=== PATIENT | female | born 1960 | race Two or more races ===

== ENCOUNTER 2024-09-15 16:41 | Inpatient (IN) | payer MEDICAID, OTHER ==
[~2024-09-15] VITALS: Ht 170.2 cm; Wt 73.1 kg
--- NOTE | 2024-09-15 19:08 | ED.PDOC ---
HPI (NEURO) HPI Comments 64y F who presents to the ED for chief complaint of generalized weakness. Per son, pt has been having fever, cough, chills, and congestion for the past 2 days. Pt states she was seen at urgent care for her symptoms and states pt had syncopal episode in urgent care for approx 7-8 seconds and brought to the ED for further evaluation. Pt states she was sitting in chair when she had a sudden syncopal episode. Pt denies any associated head injury after syncopal episode. Pt now in the ED, is alert and oriented x 4 and able to answer all questions. Pt denies chest pain, shortness of breath, headache, dizziness, nausea or vomiting. Pt has no noted changes in vision or speech. Pt otherwise able to answer all questions in the ED. Pt has noted stable vitals in the ED. Pt denies any other symptoms at this time. 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 Family History Family History: Unknown Social History Smoker: Non-Smoker Alcohol: Denies ETOH Use Drugs: Denies Drug Use Lives In: Home Constitutional: reports: chills, fever, weakness; denies: diaphoresis, fatigue, malaise, sweats, others EENTM: denies: blurred vision, double vision, ear bleeding, ear discharge, ear drainage, ear pain, ear ringing, eye pain, eye redness, hearing loss, mouth pain, mouth swelling, nasal discharge, nose bleeding, nose congestion, nose pain, photophobia, tearing, throat pain, throat swelling, voice changes, others Respiratory: reports: cough; denies: hemoptysis, orthopnea, SOB at rest, shortness of breath, SOB with excertion, stridor, wheezing, others Cardiovascular: denies: chest pain, dizzy spells, diaphoresis, Dyspnea on exertion, edema, irregular heart beat, left arm pain, lightheadedness, palpitations, PND, syncope, others Gastrointestinal: denies: abdomen distended, abdominal pain, blood streaked bowels, constipated, diarrhea, dysphagia, difficulty swallowing, hematemesis, melena, nausea, poor appetite, poor fluid intake, rectal bleeding, rectal pain, vomiting, others Genitourinary: denies: abnormal vagina bleeding, burning, dyspareunia, dysuria, flank pain, frequency, hematuria, incontinence, pain, , vagina discharge, urgency, others Neurological: reports: fainting; denies: dizziness, headache, left sided numbness, left sided weakness, numbness, paresthesia, pre-existing deficit, right sided numbness, right sided weakness, seizure, speech problems, tingling, tremors, weakness, others Musculoskeletal: denies: back pain, gout, joint pain, joint swelling, muscle pain, muscle stiffness, neck pain, others Integumetry: denies: bruises, change in color, change in hair/nails, dryness, laceration, lesions, lumps, rash, wounds, others Allergic/Immunocompromised: denies: Difficulty Healing, Frequent Infections, Hives, Itching, others Hematologic/Lymphatic: denies: anemia, blood clots, easy bleeding, easy bruising, swollen glands, others Endocrine: denies: excessive hunger, excessive sweating, excessive thirst, excessive urination, flushing, intolerance to cold, intolerance to heat, unexplained weight gain, unexplained weight loss, others Psychiatric: denies: anxiety, bipolar disorder, depression, hopeless, panic disorder, schizophrenia, sleepless, suicidal, others All Other Systems: Reviewed and Negative Physical Exam General Appearance: No Apparent Distress, Normal HEENT: Normal ENT Inspection, Pharynx Normal, TMs Normal Neck: Full Range of Motion, Non-Tender, Normal, Normal Inspection Respiratory: Chest Non-Tender, Lungs Clear, No Accessory Muscle Use, No Respiratory Distress, Normal Breath Sounds Cardiovascular: No Edema, No JVD, No Murmur, No Gallop, Normal Peripheral Pulses, Regular Rate/Rhythm Breast Exam: Deferred Gastrointestinal: No Organomegaly, Non Tender, No Pulsatile Mass, Normal Bowel Sounds, Soft Genitalia: Deferred Pelvic: Deferred Rectal: Deferred Extremities: No calf tenderness, Normal capillary refill, Normal inspection, Normal range of motion, Non-tender, No pedal edema Musculoskeletal : Apperance: Normal Neurologic: Alert, paralegal internship II-XII nml as Tested, No Motor Deficits, Normal Affect, Normal Mood, No Sensory Deficits Cerebellar Function: NOT DONE Reflexes: NOT DONE Skin: Dry, Normal Color, Warm Lymphatic: No Adenopathy Was a procedure done? Was a procedure done?: No Differential Diagnosis (SZ) General Weakness: Anemia, Dehydration, Electrolyte imbalance, Encephalopathy, Hypoglycemia, Vertigo: central, Vertigo: peripheral X-Ray, Labs, Meds, VS Vital Signs Date Time Temp Pulse Resp B/P (MAP) Pulse Ox O2 Delivery O2 Flow Rate FiO2 09/15/24 16:54 82 09/15/24 16:53 98.8 77 16 123/63 (83) 96 Lab Test 09/15/24 19:57 09/15/24 18:50 Range/Units Troponin I High Sensitivity Pending < 3 L </=34 ng/L White Blood Count 6.4 4.4-10.8 10^3/uL Red Blood Count 4.76 4.0-5.20 10^6/uL Hemoglobin 12.9 12.2-16.2 g/dL Hematocrit 39.6 36.0-46.0 % Mean Corpuscular Volume 83.1 80.0-100.0 fL Mean Corpuscular Hemoglobin 27.1 L 28.0-32.0 pg Mean Corpuscular Hemoglobin Concent 32.6 32.0-36.0 g/dL Red Cell Distribution Width 15.9 H 11.8-14.3 % Platelet Count 172 140-450 10^3/uL Mean Platelet Volume 8.7 6.9-10.8 fL Neutrophils (%) (Auto) 56.2 37.0-80.0 % Lymphocytes (%) (Auto) 33.3 10.0-50.0 % Monocytes (%) (Auto) 8.5 0.0-12.0 % Eosinophils (%) (Auto) 1.4 0.0-7.0 % Basophils (%) (Auto) 0.6 0.0-2.0 % Neutrophils # (Auto) 3.6 1.6-8.6 10 ^3/uL Lymphocytes # (Auto) 2.1 0.4-5.4 10 ^3/uL Monocytes # (Auto) 0.5 0-1.3 10 ^3/uL Eosinophils # (Auto) 0.1 0-0.8 10 ^3/uL Basophils # (Auto) 0 0-0.2 10 ^3/uL Nucleated Red Blood Cells 0.1 % Sodium Level 137 136-145 mmol/L Potassium Level 4.6 3.5-5.1 mmol/L Chloride Level 107 98-107 mmol/L Carbon Dioxide Level 21 20-31 mmol/L Anion Gap 9 5-15 Blood Urea Nitrogen 13 9-23 mg/dL Creatinine 0.71 0.550-1.02 mg/dL Glomerular Filtration Rate Calc 94 >90 mL/min BUN/Creatinine Ratio 18.3 10.0-20.0 Serum Glucose 103 74-106 mg/dL Calcium Level 9.4 8.7-10.4 mg/dL [place] [address] Ph: [phone] DIAGNOSTIC IMAGING Diagnostic Imaging Report : [id number] Signed PATIENT: PEDRO AVILESCCT: [id number] UNIT: [id number] : 1960 LOC: ER ROOM / BED: / AGE / SEX: 64 / F ADM STATUS: REG ER SERVICE 36 ORDERING PHYSICIAN: JESSIKA SALAS MD PROCEDURE(s): HWOCT - HEAD WITHOUT CONTRAST REASON: syncope ORDER NUMBER(s): [id number], ACCESSION NUMBER(s): [id number] EXAM: CT HEAD WITHOUT CONTRAST INDICATION: syncope TECHNIQUE: CT of the head without intravenous contrast. Radiation Dose : 1. Head: CT Dose: CTDI volume is 53.24 mGy. Dose-length product is 853.58 mGy*cm The dose indicators for CT are the volume Computed Tomography (CT) Dose Index (CTDIvol) and the Dose Length Product (DLP), and are measured in units of mGy and mGy-cm, respectively. These indicators are not patient dose, but values generated from the CT scanner acquisition factors. The report includes radiation exposure data for exposures received during this examination. COMPARISON: None FINDINGS: There is no evidence of acute intracranial hemorrhage, extra-axial collection, mass effect, midline shift, herniation or hydrocephalus. The ventricles, sulci and cisterns are age appropriate. The goss-white differentiation is intact. Patchy periventricular and subcortical white matter hypoattenuation is nonspecific but may be related to small vessel ischemic disease. The visualized paranasal sinuses and mastoid air cells are clear. The surrounding soft tissues and osseous structures are unremarkable. IMPRESSION: 1. No acute intracranial abnormality. Radiation optimization: All CT scans at this facility use at least one of these dose optimization techniques: automated exposure control mA and/or kV adjustment per patient size (includes targeted exams where dose is matched to clinical indication) or iterative reconstruction. ATED BY: MARLENA THOMAS MD DICTATED DATE/TIME: 09/15/241915 SIGNED BY: MARLENA THOMAS MD SIGNED DATE/TIME: 09/15/241915 CC: [place] [address] Ph: [phone] DIAGNOSTIC IMAGING Diagnostic Imaging Report : [id number] Signed PATIENT: PEDRO AVILESCCT: [id number] UNIT: [id number] : 1960 LOC: ER ROOM / BED: / AGE / SEX: 64 / F ADM STATUS: REG ER SERVICE 36 ORDERING PHYSICIAN: JESSIKA SALAS MD PROCEDURE(s): CXRP - CHEST PORTABLE REASON: syncope ORDER NUMBER(s): [id number], ACCESSION NUMBER(s): [id number] CHEST RADIOGRAPH Indication: syncope Technique: Single frontal view of the chest was obtained COMPARISON: None FINDINGS: Lines and Tubes: None Lungs: Clear Pleura: No effusion. No pneumothorax. Cardiomediastinal contours: Unremarkable Bones: Unremarkable IMPRESSION: 1. No acute disease. ATED BY: MARLENA THOMAS MD DICTATED DATE/TIME: 09/15/241916 SIGNED BY: MARLENA THOMAS MD SIGNED DATE/TIME: 09/15/241916 CC: Time of 1ST Reevaluation: 19:35 Reevaluation 1ST: Improved Patient Education/Counseling: Diagnosis, Treatment Family Education/Counseling: Diagnosis, Treatment Departure 1 Departure Time of Disposition: 20:35 (Patient presented with syncope today and should be admitted. Data: 1. I ordered and reviewed the result of at least 3 labs including a CBC, BMP, and troponin. 2. I independently interpreted the following tests: EKG which shows a we will sinus and a chest x-ray which shows benign chest and a CT head which shows benign brain.Risk:This patient has a high risk of morbidity due to further diagnostic testing or treatment and may suffer from an acute cardiac, neurologic, or infectious disorder. Rationale: Patient should be admitted to the hospital for further management.) Impression: Primary Impression: Syncope and collapse Additional Impression: Generalized weakness Disposition: ADMITTED INPATIENT Admit to: Med Surg Condition: Serious Critical Care Note Critical Care Time?: No Stability Stability form required: No Heart Score Heart Score: Heart Score Response (Comments) Value History N/A 0 EKG N/A 0 Age N/A 0 Risk Factors N/A 0 Troponin N/A 0 Total 0 I personally scribed for JESSIKA SALAS MD ([email or web address]) on 09/15/24 at 19:08. Electronically submitted by Niya Sanchez ([email or web address]). I personally scribed for JESSIKA SALAS MD ([email or web address]) on 09/15/24 at 19:33. Althea ctronically submitted by Niya Sanchez (CASTRO). JESSIKA SALAS MD Sep 15, 2024 19:08
[2024-09-15 19:16] LABS: Basophils # (auto) 0 10 ^3/uL (0-0.2); Eosinophils # (auto) 0.1 10 ^3/uL (0-0.8); Hematocrit 39.6 % (36.0-46.0); Neutrophils # (auto) 3.6 10 ^3/uL (1.6-8.6); Nucleated Red Blood Cells % 0.1 %; White Blood Cell 6.4 10^3/uL (4.4-10.8)
[2024-09-15 19:17] LABS: Basophils % (auto) 0.6 % (0.0-2.0); Eosinophils % (auto) 1.4 % (0.0-7.0); Hemoglobin 12.9 g/dL (12.2-16.2); Lymphocytes # (auto) 2.1 10 ^3/uL (0.4-5.4); Lymphocytes % (auto) 33.3 % (10.0-50.0); Mean Corpuscular Hemoglobin 27.1 pg (28.0-32.0); Mean Corpuscular Hgb Conc. 32.6 g/dL (32.0-36.0); Mean Corpuscular Volume 83.1 fL (80.0-100.0); Monocytes # (auto) 0.5 10 ^3/uL (0-1.3); Monocytes % (auto) 8.5 % (0.0-12.0); Neutrophils % (auto) 56.2 % (37.0-80.0); Platelet Count (auto) 172 10^3/uL (140-450); Red Blood Cells 4.76 10^6/uL (4.0-5.20); Red Cell Distribution Width 15.9 % (11.8-14.3)
--- NOTE | 2024-09-15 19:19 | DVH ---
EXAM: CT HEAD WITHOUT CONTRAST INDICATION: syncope TECHNIQUE: CT of the head without intravenous contrast. Radiation Dose : 1. Head: CT Dose: CTDI volume is 53.24 mGy. Dose-length product is 853.58 mGy*cm The dose indicators for CT are the volume Computed Tomography (CT) Dose Index (CTDIvol) and the Dose Length Product (DLP), and are measured in units of mGy and mGy-cm, respectively. These indicators are not patient dose, but values generated from the CT scanner acquisition factors. The report includes radiation exposure data for exposures received during this examination. COMPARISON: None FINDINGS: There is no evidence of acute intracranial hemorrhage, extra-axial collection, mass effect, midline s hift, herniation or hydrocephalus. The ventricles, sulci and cisterns are age appropriate. The goss-white differentiation is intact. Patchy periventricular and subcortical white matter hypoattenuation is nonspecific but may be related to small vessel ischemic disease. The visualized paranasal sinuses and mastoid air cells are clear. The surrounding soft tissues and osseous structures are unremarkable. IMPRESSION: 1. No acute intracranial abnormality. Radiation optimization: All CT scans at this facility use at least one of these dose optimization yuly hniques: automated exposure control mA and/or kV adjustment per patient size (includes targeted exam s where dose is matched to clinical indication) or iterative reconstruction.
--- NOTE | 2024-09-15 19:19 | DVH ---
CHEST RADIOGRAPH Indication: syncope Technique: Single frontal view of the chest was obtained COMPARISON: None FINDINGS: Lines and Tubes: None Lungs: Clear Pleura: No effusion. No pneumothorax. Cardiomediastinal contours: Unremarkable Bones: Unremarkable IMPRESSION: 1. No acute disease.
[2024-09-15 19:24] LABS: Chloride 107 mmol/L (98-107); Potassium 4.6 mmol/L (3.5-5.1); Sodium 137 mmol/L (136-145)
[2024-09-15 19:25] LABS: Anion Gap 9 (5-15); Calcium 9.4 mg/dL (8.7-10.4); Carbon Dioxide 21 mmol/L (20-31)
[2024-09-15 19:30] LABS: BUN/Creatinine Ratio 18.3 (10.0-20.0); Blood Urea Nitrogen 13 mg/dL (9-23); Glucose 103 mg/dL (74-106)
[2024-09-15 21:09] VITALS: BP 140/72; PULSE 94; TEMP 99.6
[2024-09-15 21:20] VITALS: RESP 20; O2SAT 96
--- NOTE | 2024-09-16 01:24 | DVHHP2 ---
History of Present Illness Reason for Visit: Syncope and collapse History of Present Illness The patient is a 64 year old female with past medical history of hypertension and thyroid disease who presented to [facility] ED with complaint of generalized weakness. Patient reports symptoms progressively get worse with f ever, cough, chills, congestion for the past two days, sudden syncopal episode, getting worse today that prompted this visit. Patient was seen and evaluated in the ED, laboratory data shows WBC 6.4, platelets 172, sodium 137, potassium 4.6, BUN 13, creatinine 0.71, glucose 103, troponin 3. Head CT showed no acute intracranial abnormality. Please see medication orders section in the computer. On my assessment, patient denied chest pain, no headache, no dizziness, no diaphoresis, no shortness of breath, no nausea, no vomiting, no fever, no chills. Patient was admitted for further evaluation and medical management. Past Medical History HTN, Thyroid Past Surgical History Denies all surgeries Family History Reviewed, noncontributory to the management of this case. Past Social History The patient lives at home, denies smoking, alcohol or illicit drugs abuse. Review of Systems Constitutional: Yes: Fever, Chills, Weakness; No: Sweats, Malaise, Other Eyes: No: Pain, Vision change, Conjunctivae inflammation, Eyelid inflammation, Other, Redness ENT: No: Ear pain, Ear discharge, Nose pain, Nose discharge, Nose congestion, Mouth pain, Mouth swelling, Throat pain, Throat swelling, Other Respiratory: Cough; No: Dry, Shortness of breath, SOB with excertion, Wheezing, Hemoptysis, Pleuritic Pain, Sputum, Wheezing, Other Cardiovascular: No: Chest Pain, Palpitations, Orthopnea, Paroxysmal Noc. Dyspnea, Edema, Lt Headedness, Other Gastrointestinal: No: Nausea, Vomiting, Abdominal Pain, Diarrhea, Constipation, Melena, Hematochezia, Other Genitourinary: No Dysuria, No Frequency, No Incontinence, No Hematuria, No Retention, No Other Musculoskeletal: No: other, neck pain, shoulder pain, arm pain, back pain, hand pain, leg pain, foot pain Skin: No: Rash, Lesions, Jaundice, Bruising, Other Neurological: Other (Fainting); No: Weakness, Numbness, Incoordination, Change in speech, Confusion, Seizures Allergies: Coded Allergies: NO KNOWN ALLERGIES (Unverified , 09/16/24) Exam Vital Signs Vital Signs Date Time Temp Pulse Resp B/P (MAP) Pulse Ox O2 Delivery O2 Flow Rate FiO2 09/15/24 21:20 20 96 Room Air* 0 21 09/15/24 21:09 99.6 94 140/72 (94) 99.6 General Appearance: Alert, Oriented X3, Cooperative, No acute distress HEENT: Atraumatic, PERRLA, EOMI, Mucous membr. moist/pink Respiratory: Clear to auscultation, Normal air movement Cardiovascular: Regular rate, Normal S1, Normal S2, No murmurs Abdominal: Normal bowel sounds, Soft, No tenderness, No hepatospenomegaly, No masses Extremities: No clubbing, No cyanosis, No edema, Normal pulses, No tenderness/swelling Skin: No rashes, No breakdown, No significant lesion Neuro: Normal speech, Normal tone, Sensation intact, Cranial nerves 3-12 NL, Reflexes 2+, Other (Generalized weakness) Psych/Mental Status: Mental status NL, Mood NL Labs/Xrays Labs Test 09/15/24 19:57 09/15/24 18:50 Range/Units Troponin I High Sensitivity < 3 L </=34 ng/L White Blood Count 6.4 4.4-10.8 10^3/uL Red Blood Count 4.76 4.0-5.20 10^6/uL Hemoglobin 12.9 12.2-16.2 g/dL Hematocrit 39.6 36.0-46.0 % Mean Corpuscular Volume 83.1 80.0-100.0 fL Mean Corpuscular Hemoglobin 27.1 L 28.0-32.0 pg Mean Corpuscular Hemoglobin Concent 32.6 32.0-36.0 g/dL Red Cell Distribution Width 15.9 H 11.8-14.3 % Platelet Count 172 140-450 10^3/uL Mean Platelet Volume 8.7 6.9-10.8 fL Neutrophils (%) (Auto) 56.2 37.0-80.0 % Lymphocytes (%) (Auto) 33.3 10.0-50.0 % Monocytes (%) (Auto) 8.5 0.0-12.0 % Eosinophils (%) (Auto) 1.4 0.0-7.0 % Basophils (%) (Auto) 0.6 0.0-2.0 % Neutrophils # (Auto) 3.6 1.6-8.6 10 ^3/uL Lymphocytes # (Auto) 2.1 0.4-5.4 10 ^3/uL Monocytes # (Auto) 0.5 0-1.3 10 ^3/uL Eosinophils # (Auto) 0.1 0-0.8 10 ^3/uL Basophils # (Auto) 0 0-0.2 10 ^3/uL Nucleated Red Blood Cells 0.1 % Sodium Level 137 136-145 mmol/L Potassium Level 4.6 3.5-5.1 mmol/L Chloride Level 107 98-107 mmol/L Carbon Dioxide Level 21 20-31 mmol/L Anion Gap 9 5-15 Blood Urea Nitrogen 13 9-23 mg/dL Creatinine 0.71 0.550-1.02 mg/dL Glomerular Filtration Rate Calc 94 >90 mL/min BUN/Creatinine Ratio 18.3 10.0-20.0 Serum Glucose 103 74-106 mg/dL Calcium Level 9.4 8.7-10.4 mg/dL PATIENT: PEDRO AVILESCCT: [id number] UNIT: [id number] : 1960 LOC: ER ROOM / BED: / AGE / SEX: 64 / F ADM STATUS: REG ER SERVICE 36 ORDERING PHYSICIAN: JESSIKA SALAS MD PROCEDURE(s): HWOCT - HEAD WITHOUT CONTRAST REASON: syncope ORDER NUMBER(s): [id number], ACCESSION NUMBER(s): [id number] EXAM: CT HEAD WITHOUT CONTRAST INDICATION: syncope TECHNIQUE: CT of the head without intravenous contrast. Radiation Dose : 1. Head: CT Dose: CTDI volume is 53.24 mGy. Dose-length product is 853.58 mGy*cm The dose indicators for CT are the volume Computed Tomography (CT) Dose Index (CTDIvol) and the Dose Length Product (DLP), and are measured in units of mGy and mGy-cm, respectively. These indicators are not patient dose, but values generated from the CT scanner acquisition factors. The report includes radiation exposure data for exposures received during this examination. COMPARISON: None FINDINGS: There is no evidence of acute intracranial hemorrhage, extra-axial collection, mass effect, midline shift, herniation or hydrocephalus. The ventricles, sulci and cisterns are age appropriate. The goss-white differentiation is intact. Patchy periventricular and subcortical white matter hypoattenuation is nonspecific but may be related to small vessel ischemic disease. The visualized paranasal sinuses and mastoid air cells are clear. The surrounding soft tissues and osseous structures are unremarkable. IMPRESSION: 1. No acute intracranial abnormality. ORDERING PHYSICIAN: JESSIKA SALAS MD PROCEDURE(s): CXRP - CHEST PORTABLE REASON: syncope ORDER NUMBER(s): [id number], ACCESSION NUMBER(s): [id number] CHEST RADIOGRAPH Indication: syncope Technique: Single frontal view of the chest was obtained COMPARISON: None FINDINGS: Lines and Tubes: None Lungs: Clear Pleura: No effusion. No pneumothorax. Cardiomediastinal contours: Unremarkable Bones: Unremarkable IMPRESSION: 1. No acute disease. Assessment/Plan Assessment/Plan Syncope and collapse Generalized weakness Plan 1. Admit to telemetry unit 2. Breathing treatment 3. Pain control management 4. Management of fluids and electrolytes 5. Consultation for hospitalist 6. Diagnostic tests head CT 7. DVT prophylaxis-on SCDs 8. Repeat labs CBC, CMP in a.m. 9. Continue with current medical management 10. Treatment plan discussed with patient and RN. Patient verbalized understanding. Plan discussed with: Patient, Other (RN) My Orders Orders - CECELIA PLUMMER DNP Procedure Category Date Status Time Complete Blood Count LAB 09/16/24 Verified 04:00 Comprehensive LAB 09/16/24 Verified Metabolic Panel 04:00 Levothyroxine Tablet PHA 09/16/24 Verified (Synthroid Tablet) 06:00 Thyroid Stimulating LAB 09/16/24 Verified Hormone 04:00 Problem List: (1) Syncope and collapse (2) Generalized weakness Date of Service: Sep 16, 2024 Billing Provider: CECELIA PLUMMER DNP Common Visit Codes: [id number] INP/OBS CARE (HIGH) CECELIA PLUMMER DNP Sep 16, 2024 01:24
[2024-09-16] MEDS ORDERED: ACETAMINOPHEN 325 MG TAB PO PRN (01:30)
[2024-09-16] MEDS ORDERED: hydrALAZINE HCL 20 MG/ML VL IV PRN (01:30)
[2024-09-16] MEDS ORDERED: ONDANSETRON HCL 4 MG/2 ML VIAL IV PRN (01:30)
[2024-09-16] MEDS ORDERED: HYDROcodone-ACET 5/325MG TAB PO PRN (01:30)
[2024-09-16] MEDS ORDERED: NITROGLYCERIN 0.4 MG SL TAB SL PRN (01:30)
[2024-09-16] MEDS ORDERED: MORPHINE SULFATE INJ 2 MG/ml SYRG IV PRN (01:30)
[2024-09-16] MEDS ORDERED: DOCUSATE SOD 100 MG CAP PO PRN (01:30)
[2024-09-16] MEDS ORDERED: SODIUM CHLORIDE 0.9% 1,000 ML IV SCH (01:30)
--- NOTE | 2024-09-16 03:46 | ECG ---
[facility] Test Date: 2024-09-15 Test Time: 16:54:31 Pat Name: PEDRO AVILES Department: ER Room: [address] [place] [address] Gender: F Ecotherapist: DYANA : 1960 Requested By: JESSIKA SALAS Order Number: [id number] Reading MD: Guido Botello Measurements Intervals [place] Rate: 82 P: 62 NM: 161 QRS: -31 QRSD: 103 T: 49 QT: 379 QTc: 443 Interpretive Statements Sinus rhythm Probable left atrial enlargement Left axis deviation Low voltage, precordial leads Abnormal R-wave progression, early transition Baseline wander in lead(s) II,V5,V6 Electronically Signed On 09-18-2024 8:22:58 PST by Guido Botello Please click the below link to view image of tracing.
[2024-09-16] MEDS ORDERED: LEVOTHYROXINE SODIUM 25 MCG TAB PO SCH (06:00)
== END 2024-09-16 01:20 | disposition left against medical advice (07) | DRG 204 ==
LOC: ER 16:41 → TELE 09-16 01:19 → ER 09-16 01:20 → TELE 09-16 01:20
PROVIDERS: ADMIT Nurse Practitioner Family; ATTEND Nurse Practitioner Family
DX: R55 Syncope and collapse (principal); I10 Essential (primary) hypertension; Z53.29 Procedure and treatment not carried out because of patient's decision for other reasons; Z79.899 Other long term (current) drug therapy; R53.1 Weakness
CPT/HCPCS: 36415; 70450; 71045; 80048; 84484; 85025; 93005; G0378